=== PATIENT | male | born 1985 | race Caucasian/White ===

== ENCOUNTER → 2019-08-22 14:53 | Outpatient (CLI) | payer BC, SELFPAY ==
--- NOTE | 2019-08-22 14:53 | CT_ITS ---
PROCEDURE: CT MASTOID W/O CLINICAL HISTORY: CHRONIC TINNITUS, CHRONIC LEFT EAR PAIN COMPARISON: No exams were available for comparison TECHNIQUE: Axial images obtained with sagittal and coronal reformats. All CT scans at the facility use one or more dose reduction, viz: automated exposure control, ma/kV adjustment per patient size (including targeted exams where dose is matched to indication, i.e. head), or iterative reconstruction technique. FINDINGS: No mastoid or middle ear opacification. No evidence cholesteatoma or scutal erosion. The acoustic foramen is symmetric on both sides. Incidental note is made mild mucosal thickening of the maxillary sinuses with a retention cyst in the floor the left maxillary sinus of 18 mm. There is mild rightward nasal septal deviation. IMPRESSION: Unremarkable CT of the mastoid sinuses Dictated by: Jimmy Alexander MD 08/23/2019 09:32 Electronically signed by Jimmy Alexander MD in [facility] 08/23/2019 09:32
== END ==
PROVIDERS: PCP Family Medicine; Visit Provider Otolaryngology
DX: H70.12 Chronic mastoiditis, left ear (principal); H92.02 Otalgia, left ear
CPT/HCPCS: 70486

== ENCOUNTER → 2019-11-13 16:03 | Outpatient (CLI) | payer BC, SELFPAY ==
--- NOTE | 2019-11-13 16:03 | CT_ITS ---
PROCEDURE: CT SINUS WO CON CLINICAL HISTORY: sinus cyst Cyst of the left maxillary sinus found in prior ct COMPARISON: CT CT MASTOID W/O from 08/22/2019 TECHNIQUE: Axial images obtained with sagittal and coronal reformats. All CT scans at the facility use one or more dose reduction, viz: automated exposure control, ma/kV adjustment per patient size (including targeted exams where dose is matched to indication, i.e. head), or iterative reconstruction technique. FINDINGS: Insult a James the floor of the maxillary sinuses bilaterally. A 15 mm retention cyst is present in the floor the left maxillary sinus. The mucosal thickening in the left maxillary sinus inferiorly and medially has shown some improvement. There is minimal mucosal thickening of the ethmoid sinuses. No air-fluid levels evident. There is mild rightward anterior nasal septal deviation and mild posterior leftward nasal septal deviation with a small septal spur projecting toward the left. The ostiomeatal units are patent. No bony destructive process. The orbits, TMJs, and mastoid sinuses are unremarkable.. IMPRESSION: There is mild bilateral maxillary sinus disease with a retention cyst in the floor the left maxillary sinus. The mucosal thickening left maxillary sinus has shown some improvement. Mild nasal septal deviation Dictated by: Jimmy Alexander MD 11/14/2019 08:36 Jimmy Alexander MD in [facility] 11/14/2019 08:36
== END ==
PROVIDERS: PCP Family Medicine; Visit Provider Otolaryngology
DX: J34.1 Cyst and mucocele of nose and nasal sinus (principal)
CPT/HCPCS: 70486

== ENCOUNTER → 2021-05-01 12:49 | Outpatient (CLI) | payer BC, SELFPAY ==
[2021-05-02 06:34] LABS: Covid-19 Nasal PCR Sendout Lex NOT DETECTED
== END ==
PROVIDERS: Visit Provider Nurse Practitioner
DX: Z20.822 Contact with and (suspected) exposure to COVID-19 (principal)
CPT/HCPCS: C9803; U0004; U0005

== ENCOUNTER → 2021-05-02 16:52 | Outpatient (CLI) | payer BC, SELFPAY | PROVIDERS: PCP Family Medicine; Visit Provider Nurse Practitioner | DX: Z20.822 Contact with and (suspected) exposure to COVID-19 (principal) | CPT/HCPCS: C9803; U0003; U0005 ==

== ENCOUNTER 2021-05-22 09:05 | Emergency (ER) | payer BC, SELFPAY ==
[2021-05-22 09:10] VITALS: BP 141/82; PULSE 98; RESP 18; TEMP 36.8; O2SAT 97; BMI 27.8
[2021-05-22 09:37] VITALS: BP 141/82; PULSE 98; RESP 18; TEMP 36.8; O2SAT 97
--- NOTE | 2021-05-22 09:40 | HMH.EDUTC ---
[facility] [place] Impression: Otitis media Qualifiers: Otitis media type: unspecified Laterality: bilateral Qualified Code(s): H66.93 - Otitis media, unspecified, bilateral Disposition: Home, Self-Care Condition on Discharge: Good Instructions: Middle Ear Infection, Amoxicillin Additional Instructions: *Monitor Temp, Over the counter Motrin or Tylenol as directed/as needed Tylenol every 4 hours and Motrin every 6 hours (as long as your family doctor has told you that you can take it) for fever or pain. and straight to ER if unable to lower temp less than 101.0 after medication given *Sleep elevated *Humidifier/Vaporizer *Flonase 2 sprays in each nostril daily but be aware that it may take 2-3 days before you notice improvement Take medication asp prescribed Follow up IMMEDIATELY for new or worsening symptoms or no Noticeable improvement over the next 48-72 hours. 911 for difficulty breathing or swallowing Prescriptions: Amoxicillin [Amoxicillin 875MG Tab] 875 mg PO Q12H #20 tab Transmission Status: Pending to [facility] # Fluticasone Propionate [Flonase 50mcg nasal spray 16gm] 1 spr NS DAILY #1 each Transmission Status: Pending to [facility] # methylPREDNISolone [Medrol 4mg tab] 4 mg PO DIRECTED #21 tab Transmission Status: Pending to [facility] # Referrals: Anderson Winston MD [Primary Care Provider] - Forms: Work/School Release Time of Disposition: 09:42 Medical Decision Making - Robe Inquiry Pt receiving controlled substance: No Robe was queried for this patient: No Vital Signs: 05/22/21 09:10 Temperature 98.2 F Temperature Source Oral Pulse Rate [Right Brachial] 98 H Respiratory Rate 18 Blood Pressure [Right Arm] 141/82 H Blood Pressure Mean [Right Arm] 101 Blood Pressure Source [Right Arm] Automatic Cuff Blood Pressure Position [Right Arm] Sitting 02 Sat by Pulse Oximetry 97 Oxygen Delivery Method Room Air [facility] [place] - General Stated complaint: ear pain Time Seen by Provider: 05/22/21 09:40 Mode of Arrival: Ambulatory Source of Information: Patient Limitations: No Limitations Description of Symptoms (Recalled from Triage Doc. by RN): PATIENT C/O POSSIBLE BILATERAL EAR INFECTION HEENT Symptoms (Recalled from RN notes): Yes Resp Symptoms (Recalled from RN notes): No Skin Symptoms (Recalled from RN notes): No MS Symptoms (Recalled from RN notes): No Functional Status (Recalled from RN notes): WNL - History of Present Illness Provider Complaint: Patient states that he has been having bilateral ear pain since he got home from [place] States that he feels like he has fluid in his ears and having alot of pressure States that today it was hurting worse so he came in to get it checked out - Related Data Previous Rx's Medication Instructions Recorded Amoxicillin [Amoxicillin 875MG 875 mg PO Q12H #20 tab 05/22/21 Tab] Fluticasone Propionate [Flonase 1 spr NS DAILY #1 each 05/22/21 50mcg nasal spray 16gm] methylPREDNISolone [Medrol 4mg 4 mg PO DIRECTED #21 tab 05/22/21 tab] Allergies Allergy/AdvReac Type Severity Reaction Status Date / Time No Known Allergies Allergy Verified 11/21/19 15:56 - Worker's Comp Is this a Worker's Comp case?: No [facility] History - Hepatitis A Screen Drug use history?: No High risk sexual behaviors?: No History of sexually transmitted infection?: No Currently employed?: No Childcare worker?: No Do you have indoor plumbing?: Yes Do you have electricity?: Yes Attestation statement:: This patient has been screened for Hepatitis A risk factors. I have reviewed the patient's past medical history: Yes Other Medical History: Reports: Sinus Problems Other Surgeries: Yes: No Previous Surgery - Social History Smoking Status: Former smoker Alcohol Intake: never Alcohol Intake Frequency:: holidays/special occasions only Occupational Status: other Family Hx:: Hyperlip
== END 2021-05-22 09:40 | disposition home or self-care (01) ==
PROVIDERS: Emergency Provider Nurse Practitioner; PCP Family Medicine
DX: H66.93 Otitis media, unspecified, bilateral (principal); L98.8 Other specified disorders of the skin and subcutaneous tissue; Z79.51 Long term (current) use of inhaled steroids; Z79.52 Long term (current) use of systemic steroids; Z79.899 Other long term (current) drug therapy; Z87.891 Personal history of nicotine dependence; Z83.438 Family history of other disorder of lipoprotein metabolism and other lipidemia
CPT/HCPCS: 99212; 99213; G0463